=== PATIENT | male | born 1985 | race Caucasian/White ===

== ENCOUNTER 2021-07-13 02:04 | Emergency (ER) | payer MEDICAID ==
[2021-07-13] MEDS ORDERED: Sodium Chloride 0.9% 2.5 ML Syringe FLUSH PRN (02:12)
[2021-07-13] MEDS ORDERED: Sodium Chloride 0.9% 10 ML Syringe FLUSH PRN (02:12)
[2021-07-13] MEDS ORDERED: Sodium Chloride 0.9% 1,000 ML IV ONE (02:12)
[2021-07-13] MEDS ORDERED: Midazolam 1 MG/ML 2 ML SDV ONE ×2 (02:19→03:01)
[2021-07-13 02:37] LABS: BLOOD UREA NITROGEN,BUN 10 mg/dL (7.0-18.0); CARBON DIOXIDE,CO2 23.2 mmol/L (21.0-32.0); CHLORIDE,CL 102 mmol/L (98-107); GLUCOSE RANDOM 143 mg/dL (74-106); POTASSIUM,K 3.6 mmol/L (3.5-5.1); SODIUM,NA 140 mmol/L (136-148)
--- NOTE | 2021-07-13 02:52 | CR ---
Indication: Post intubation Technique: AP view of the chest Comparison: None Findings/Impression: 1. Tip of the endotracheal to lies approximately the 5.5 cm above the [place]. 2. Patchy left lung base opacity and mild prominence of the interstitial markings. 3. Nonenlarged cardiac silhouette. No sizable pleural effusion. 4. No evidence of pneumothorax. No significant osseous abnormality. Dictated by Mojgan Bruce MD @ 07/13/2021 2:50:[address] Mojgan Bruce @ Jul 13 2021 2:50AM
[2021-07-13] MEDS ORDERED: Midazolam 1 MG/ML 2 ML SDV IVPUSH ONE (02:59)
--- NOTE | 2021-07-13 03:05 | CT ---
Indication: Fall, loss of consciousness Technique: Nonenhanced axial CT imaging through the head. Sagittal and coronal reconstructions are provided. Comparison: None Findings: Moderate subarachnoid hemorrhage most pronounced over the frontal cerebral convexities, and to a lesser degree at the temporal poles into the sylvian fissures. Thin right parafalcine subdural hematoma measuring up to 6 mm in thickness. Subdural blood also layers along the right tentorial leaflet. Additional subdural hematoma over the right parietal cerebral convexity, measuring up to 6 mm in thickness. No appreciable cerebral edema. No significant mass effect or midline shift. Normal size of the ventricles. Acute nondisplaced skull fracture through the right parasagittal frontal bone extending to the sagittal suture. Large then midline frontal scalp hematoma. Additional nondisplaced fracture of the left occipital bone. A mastoid air cells and middle ear cavities are clear. Endotracheal tube is partially visualized. Fluid in the nasal cavity and nasopharynx is presumably secondary to intubation. Impression: 1. Moderate subarachnoid hemorrhage most pronounced over the frontal cerebral convexities, and to a lesser degree at the temporal poles into the sylvian fissures. 2. Thin right parafalcine subdural hematoma measuring up to 6 mm in thickness with subdural blood layering along the right tentorial leaflet. Additional subdural hematoma over the right parietal cerebral convexity, also measuring up to 6 mm in thickness. 3. Acute nondisplaced skull fracture through the right parasagittal frontal bone extending to the sagittal suture. Large then midline frontal scalp hematoma. 4. Additional nondisplaced fracture of the left occipital bone. Please note that all CT scans at this facility use dose modulation, iterative reconstruction, and/or weight-based dosing when appropriate to reduce radiation dose to as low as reasonably achievable. Dictated by Mojgan Bruce MD @ 07/13/2021 3:04:[address] Mojgan Bruce @ Jul 13 2021 3:04AM
--- NOTE | 2021-07-13 03:24 | CT ---
Indication: Fall with LOC Technique: Nonenhanced axial CT imaging through the cervical spine. Sagittal and coronal reconstructions are provided. Comparison: None Findings: The cervical vertebral bodies are normal in height. There is no evidence of acute fracture. Spinal alignment is normal. The atlantoaxial and atlantooccipital relationships are maintained. There is no prevertebral edema. There is no appreciable narrowing of the spinal canal or neural foramina. Endotracheal tube is partially visualized. Impression: No acute fracture or traumatic malalignment. Please note that all CT scans at this facility use dose modulation, iterative reconstruction, and/or weight-based dosing when appropriate to reduce radiation dose to as low as reasonably achievable. Dictated by Mojgan Bruce MD @ 07/13/2021 3:23:[address] Mojgan Bruce @ Jul 13 2021 3:23AM
[2021-07-13] MEDS ORDERED: fentaNYL 50 MCG/ML SDV IVPUSH ONE (03:32)
[2021-07-13] MEDS ORDERED: fentaNYL 100 MCG/2 ML SDV ONE (03:34)
--- NOTE | 2021-07-13 03:51 | EDM.PDOC ---
ED HPI GENERAL MEDICAL PROBLEM - General Chief Complaint: Trauma Stated Complaint: FALL Time Seen by Provider: 07/13/21 02:11 - History of Present Illness INITIAL COMMENTS - FREE TEXT/NARRATIVE: HISTORY AND PHYSICAL: History of present illness: This is a 36-year-old gentleman with no significant past medical history who presents here today by EMS intubated as a trauma code. Per EMS report, the patient was drinking a significant mount of alcohol today per his friends who were onsite. Patient had a witnessed fall with positive LOC which was unclear whether before or after the fall. Upon EMS arrival, the patient was placed in a c-collar backboard and was intubated for airway protection. Per EMS, patient's GCS was 7 at the time and was not protecting his airway and was having shallow respirations. They did report however that during their evaluation they put a nasal trumpet in which the patient did remove with utilizing his right hand. While placing a intraosseous line, they report that the patient did withdraw his right lower extremity. They were able to utilize RSI with ketamine and succinylcholine and rocuronium and were able to successfully intubate the patient. Upon arrival to the ED, the patient is intubated with a GCS of 3I. Patient is unable to give further history however patient's and children are in the waiting room and reports that throughout the course of the last couple days the family has been hiking throughout the area and reports that they are close to [place] and he want to come visit his friends and so she dropped him off at his friend's home and she and the kids went back to the hotel for sleep. She reports he does not do any drugs. She denies any history of hypertension, diabetes, liver, lung, kidney problems. She denies any known surgery in his abdomen or chest. Review of systems: As per history of present illness and below otherwise all systems reviewed and negative. Past medical history: As per history of present illness and as reviewed below otherwise noncontributory. Surgical history: As per history of present illness and as reviewed below otherwise noncontributory. Social history: No reported history of drug abuse. Family history: As per history of present illness and as reviewed below otherwise noncontributory. Physical exam: PRIMARY SURVEY: -A: Intubated with equal breath sounds bilaterally -B: Equal breath sounds bilaterally, CTAB without W/R/R, nonlabored -C: RRR without M/R/G, normal S1/S2, 2+ distal pulses palpable in radials, femorals and DP/PTs bilaterally -D: GCS 3 intubated -E: No rashes, lacerations or bruises patient does have soft tissue swelling to his head unclear whether it is hematoma versus his normal variant. SECONDARY SURVEY: -NEURO: Unable to assess fully secondary to patient intubated and paralyzed. Pupils are 3 mm bilaterally. -HEAD: Soft tissue swelling mid occiput., no gross palpable skull deformities, no periorbital or mastoid ecchymosis -EYES: PERRLA from 3 to 2, tracking, EOMI grossly, sclera noninjected -ENT: No hemotympanum, no epistaxis, no septal hematoma, midface stable to manipulation, no blood in oropharynx, dentition intact no anterior neck injury/crepitus -NECK: Unable to assess tenderness, no step offs/deformities, trachea midline, no JVD -CHEST: no crepitus, no abrasions/ecchymosis, equal chest movement -ABDOMEN: Soft, non-distended, unable to assess tenderness, no abrasions/ecchymosis -PELVIS: Stable to palpation, unable to assess tenderness , no abrasions/ecchymosis -RECTAL: Deferred -EXTREMITIES: No gross deformities, no abrasions/ecchymosis noted, 2+ radial/femoral/DP/PT pulses present bilaterally -BACK/SPINE: No step offs/deformities or tenderness to palpation of thoracic/lumbar spine, no abrasion/ecchymosis noted. HEENT: Moist mucous membranes Eyes: Right eye exhibits no discharge. Left eye exhibits no discharge. No scleral icterus Neck:No tracheal deviation present. Cardiovascular: Normal rate and regular rhythm. Pulmonary: Intubated equal breath sounds bilaterally Abdominal: No distention Musculoskeletal: Not moving extremities Neurologic: GCS of 3 intubated Skin: [place], warm and dry. Nursing note and vital signs have been reviewed Diagnostics: CT head reveals some moderate subarachnoid hemorrhage most pronounced over the frontal cerebral convexities and to a lesser degree at the temporal poles into the sylvian fissures. Thin right parafalcine subdural hematoma measuring up to 6 mm in thickness with subdural blood layering along the right tentorial leaflet. Additional subdural hematoma over the right parietal cerebral convexity also measuring up to 6 mm in thickness. Acute nondisplaced skull fracture through the right parasagittal frontal bone extending to the sagittal suture. Large thin midline frontal scalp hematoma. Additional nondisplaced fracture of the left occipital bone. Therapeutics: Intubated placed on ventilator. Sedation given with Versed and fentanyl NSS Assessment and plan: 36-year-old gentleman who presents ER today as a trauma code and was intubated for airway protection. Patient's labs are significant for an alcohol level greater than 500. Patient CT scan reveals subarachnoid hemorrhage, subdural hematoma, and skull fractures. Given his significant injuries identified on CT scan, we have contacted the trauma centers to see if we can transfer. There is no bed availability at [facility], [facility], we have discussed the case with [facility] and they have agreed to assist this with transfer the patient to their facility for management of his intracranial hemorrhage and skull fractures. Patient also has severe alcohol intoxication/toxicity. Critical Care: The high probability of sudden, clinically significant deterioration in the patient's condition required the highest level of my preparedness to intervene urgently. The services I provided to this patient were to treat and/or prevent clinically significant deterioration. Services included the following: chart data review, reviewing nursing notes and/or old charts, documentation time, sec reporting consultant collaboration regarding findings and treatment options, medication orders and management, direct patient care, vital sign assessments and ordering, interpreting and reviewing diagnostic studies/lab tests. Aggregate critical care time includes only time during which I was engaged inwork directly related to the patient's care, as described above, whether at the bedside or elsewhere in the Emergency Department. It did not include time spent performing other reported procedures or the services of residents, students, nurses or physician assistants. Critical Care Time: 60 minutes Definitive disposition and diagnosis as appropriate pending reevaluation and review of above. - Related Data Allergies Allergy/AdvReac Type Severity Reaction Status Date / Time No Known Allergies Allergy Verified 07/13/21 04:28 Home Meds: Home Meds . [No Known Home Meds] 07/13/21 [History] Review of Systems - Review of Systems Review Of Systems: See Below ED EXAM, GENERAL - Physical Exam Exam: See Below #1 Interpretation EKG Interpretation Comments: EKG date Burney 16 3:07 AM EKG: As interpreted by ER physician: Kemi: Nonspecific ST-T wave abnormalities Normal axis No evidence of ST elevation ME Sinus tachycardia 107 Course - Orders/Labs/Meds Orders: Active Orders 24 hr Category Date Time Status Saline Lock Insert [OM.PC] Stat Oth 07/13/21 02:12 Ordered Labs: Laboratory Tests 07/13/21 07/13/21 07/13/21 Range/Units 02:06 02:06 03:10 WBC 10.12 (4.0-11.0) K/uL RBC 5.19 (4.50-5.90) M/uL Hgb 16.8 (13.0-17.0) g/dL Hct 48.4 (38.0-50.0) % MCV 93.3 (80.0-98.0) fL MCH 32.4 H (27.0-32.0) pg MCHC 34.7 (31.0-37.0) g/dL RDW Std Deviation 44.0 (28.0-62.0) fl RDW Coeff of [place] 13 (11.0-15.0) % Plt Count 258 (150-400) K/uL MPV 10.20 (7.40-12.00) fL Neut % (Auto) 54.1 (48.0-80.0) % Lymph % (Auto) 37.7 (16.0-40.0) % [place] % (Auto) 5.9 (0.0-15.0) % Eos % (Auto) 1.9 (0.0-7.0) % Baso % (Auto) 0.4 (0.0-1.5) % Neut # (Auto) 5.5 (1.4-5.7) K/uL Lymph # (Auto) 3.8 H (0.6-2.4) K/uL [place] # (Auto) 0.6 (0.0-0.8) K/uL Eos # (Auto) 0.2 (0.0-0.7) K/uL Baso # (Auto) 0.0 (0.0-0.1) K/uL Nucleated RBC % 0.0 /100WBC Nucleated RBCs # 0 K/uL Sodium 140 (136-148) mmol/L Potassium 3.6 (3.5-5.1) mmol/L Chloride 102 (98-107) mmol/L Carbon Dioxide 23.2 (21.0-32.0) mmol/L BUN 10 (7.0-18.0) mg/dL Creatinine 0.7 L (0.8-1.3) mg/dL Est Cr Clr Drug Dosing TNP Estimated GFR (MDRD) > 60.0 ml/min Glucose 143 H (74-106) mg/dL POC Glucose (70-99) mg/dL Calcium 8.2 L (8.5-10.1) mg/dL Total Bilirubin 0.4 (0.2-1.0) mg/dL AST 41 H (15-37) IU/L ALT 85 H (14-63) IU/L Alkaline Phosphatase 46 (46-116) U/L Troponin I < 0.050 (0.000-0.056) ng/mL Total Protein 7.8 (6.4-8.2) g/dL Albumin 4.2 (3.4-5.0) g/dL Globulin 3.6 (2.6-4.0) g/dL Albumin/Globulin Ratio 1.2 (0.9-1.6) Urine Opiates Screen NEGATIVE (NEGATIVE) Ur Oxycodone Screen NEGATIVE (NEGATIVE) Urine Methadone Screen NEGATIVE (NEGATIVE) Ur Barbiturates Screen NEGATIVE (NEGATIVE) Ur Phencyclidine Scrn NEGATIVE (NEGATIVE) Ur Amphetamine Screen NEGATIVE (NEGATIVE) U Methamphetamines Scrn NEGATIVE (NEGATIVE) U Benzodiazepines Scrn NEGATIVE (NEGATIVE) U Cocaine Metab Screen NEGATIVE (NEGATIVE) U Marijuana (THC) Screen NEGATIVE (NEGATIVE) Ethyl Alcohol 570 mg/dL SARS-CoV-2 RNA ([place]) (NEGATIVE) 07/13/21 07/13/21 Range/Units 03:10 03:23 WBC (4.0-11.0) K/uL RBC (4.50-5.90) M/uL Hgb (13.0-17.0) g/dL Hct (38.0-50.0) % MCV (80.0-98.0) fL MCH (27.0-32.0) pg MCHC (31.0-37.0) g/dL RDW Std Deviation (28.0-62.0) fl RDW Coeff of [place] (11.0-15.0) % Plt Count (150-400) K/uL MPV (7.40-12.00) fL Neut % (Auto) (48.0-80.0) % Lymph % (Auto) (16.0-40.0) % [place] % (Auto) (0.0-15.0) % Eos % (Auto) (0.0-7.0) % Baso % (Auto) (0.0-1.5) % Neut # (Auto) (1.4-5.7) K/uL Lymph # (Auto) (0.6-2.4) K/uL [place] # (Auto) (0.0-0.8) K/uL Eos # (Auto) (0.0-0.7) K/uL Baso # (Auto) (0.0-0.1) K/uL Nucleated RBC % /100WBC Nucleated RBCs # K/uL Sodium (136-148) mmol/L Potassium (3.5-5.1) mmol/L Chloride (98-107) mmol/L Carbon Dioxide (21.0-32.0) mmol/L BUN (7.0-18.0) mg/dL Creatinine (0.8-1.3) mg/dL Est Cr Clr Drug Dosing Estimated GFR (MDRD) ml/min Glucose (74-106) mg/dL POC Glucose 134 H (70-99) mg/dL Calcium (8.5-10.1) mg/dL Total Bilirubin (0.2-1.0) mg/dL AST (15-37) IU/L ALT (14-63) IU/L Alkaline Phosphatase (46-116) U/L Troponin I (0.000-0.056) ng/mL Total Protein (6.4-8.2) g/dL Albumin (3.4-5.0) g/dL Globulin (2.6-4.0) g/dL Albumin/Globulin Ratio (0.9-1.6) Urine Opiates Screen (NEGATIVE) Ur Oxycodone Screen (NEGATIVE) Urine Methadone Screen (NEGATIVE) Ur Barbiturates Screen (NEGATIVE) Ur Phencyclidine Scrn (NEGATIVE) Ur Amphetamine Screen (NEGATIVE) U Methamphetamines Scrn (NEGATIVE) U Benzodiazepines Scrn (NEGATIVE) U Cocaine Metab Screen (NEGATIVE) U Marijuana (THC) Screen (NEGATIVE) Ethyl Alcohol mg/dL SARS-CoV-2 RNA ([place]) NEGATIVE (NEGATIVE) Meds: Medications Discontinued Medications Generic Name Dose Route Start Last Admin Trade Name Daniq PRN Reason Stop Dose Admin Fentanyl 100 mcg 07/13/21 03:32 07/13/21 03:36 Fentanyl 50 Mcg/Ml Sdv IVPUSH 07/13/21 03:33 100 mcg ONETIME ONE Administration Fentanyl Confirm 07/13/21 03:34 07/13/21 03:37 Fentanyl 100 Mcg/2 Ml Sdv Administered 07/13/21 03:35 Not Given Dose 100 mcg .ROUTE .STK-MED ONE Sodium Chloride 1,000 mls @ 999 mls/hr 07/13/21 02:12 07/13/21 03:03 Normal Saline IV 07/13/21 03:12 999 mls/hr .Bolus ONE Administration Midazolam HCl Confirm 07/13/21 02:19 07/13/21 03:04 Midazolam 1 Mg/Ml 2 Ml Sdv Administered 07/13/21 02:20 Not Given Dose 2 mg .ROUTE .STK-MED ONE Midazolam HCl 2 mg 07/13/21 02:59 07/13/21 03:04 Midazolam 1 Mg/Ml 2 Ml Sdv IVPUSH 07/13/21 03:00 2 mg ONETIME ONE Administration Midazolam HCl Confirm 07/13/21 03:01 07/13/21 03:04 Midazolam 1 Mg/Ml 2 Ml Sdv Administered 07/13/21 03:02 Not Given Dose 2 mg .ROUTE .STK-MED ONE Sodium Chloride 10 ml 07/13/21 02:12 Sodium Chloride 0.9% 10 Ml Syringe FLUSH ASDIRECTED PRN Keep Vein Open Sodium Chloride 2.5 ml 07/13/21 02:12 Sodium Chloride 0.9% 2.5 Ml Syringe FLUSH ASDIRECTED PRN Keep Vein Open Departure - Departure Time of Disposition: 03:51 Disposition: DC/Tfer to Acute Hospital 02 Condition: Serious, Critical Clinical Impression: Subarachnoid hemorrhage, Subdural hematoma Skull fracture Qualifiers: Encounter type: initial encounter Skull bone/location: frontal bone Fracture type: closed Qualified Code(s): S02.0XXA - Fracture of vault of skull, initial encounter for closed fracture Alcohol intoxication Qualifiers: Complication of substance-induced condition: uncomplicated Qualified Code(s): F10.920 - Alcohol use, unspecified with intoxication, uncomplicated - Discharge Information Referrals: PCP,None [Primary Care Provider] - Forms: ED Department Discharge - My Orders Last 24 Hours: My Active Orders 07/13/21 02:12 Saline Lock Insert [OM.PC] Stat - Assessment/Plan Last 24 Hours: My Active Orders 07/13/21 02:12 Saline Lock Insert [OM.PC] Stat
== END 2021-07-13 04:10 ==
LOC: MW.ED 02:04
DX: S06.5X9A Traumatic subdural hemorrhage with loss of consciousness of unspecified duration, initial encounter (principal); S06.6X9A Traumatic subarachnoid hemorrhage with loss of consciousness of unspecified duration, initial encounter; S02.0XXA Fracture of vault of skull, initial encounter for closed fracture; F10.129 Alcohol abuse with intoxication, unspecified; Z20.822 Contact with and (suspected) exposure to COVID-19; W18.39XA Other fall on same level, initial encounter
CPT/HCPCS: 31500; 36415; 70450; 71045; 72125; 80053; 80305; 80307; 82947; 84484; 85025; 87635; 93005; 99285; G0390; J2250; J3010; J7030; U0002